=== PATIENT | female | born 1990 | race African-American/Black ===

== ENCOUNTER 2020-09-29 16:31 | Inpatient (IN) | payer MEDICAID, OTHER ==
[~2020-09-29] VITALS: Ht 167.6 cm; Wt 80.8 kg
[2020-09-29] MEDS ORDERED: SODIUM CHLORIDE 0.9% 1,000 ML IV ONE (18:30)
[2020-09-29 19:25] LABS: BASOPHILS % 0.3 % (0.0-2.0); EOSINOPHILS % 1.1 % (0.0-5.0); HEMATOCRIT. 37.8 % (36.0-48.0); HEMOGLOBIN. 12.5 g/dL (12.0-16.0); LYMPHOCYTES % 9.3 % (20.0-50.0); MEAN CORPUSCULAR HEMOGLOBIN 28.8 pg (28.0-32.0); MEAN CORPUSCULAR VOLUME 87.3 fL (81.0-99.0); MEAN PLATELET VOLUME 7.1 fl (7.4-10.4); MONOCYTES % 7.3 % (2.0-8.0); PLATELET 413 x1000/uL (130-400); RED BLOOD CELL COUNT 4.33 mill/uL (4.2-5.4); RED CELL DISTRIBUTION WIDTH 13.6 % (11.6-14.6)
[2020-09-29 19:30] LABS: CHLORIDE 103 mEq/L (98-107)
[2020-09-29 19:34] LABS: D-DIMER 0.64 mg/L FEU (<0.50); PROTHROMBIN TIME 10.3 sec (9.6-11.0)
[2020-09-29 19:36] LABS: ETHANOL BLOOD < 10 mg/dL
[2020-09-29 19:39] LABS: HCG SCREEN POSITIVE
[2020-09-29 21:35] LABS: CLARITY URINE CLEAR (CLEAR); COLOR URINE YELLOW (YELLOW); KETONES URINE NEGATIVE (NEGATIVE); LEUKOCYTE ESTERASE URINE NEGATIVE (NEGATIVE); NITRITE URINE NEGATIVE (NEGATIVE); OCCULT BLOOD URINE NEGATIVE (NEGATIVE); PROTEIN URINE NEGATIVE (NEGATIVE); SPECIFIC GRAVITY URINE 1.007 (1.005-1.030); UROBILINOGEN URINE 0.2 E.U./dL (0.2-1.0)
[2020-09-29 21:45] LABS: *BARBITURATES SCREEN URINE NEGATIVE (NEGATIVE); *BENZODIAZEPINES SCREEN URINE NEGATIVE (NEGATIVE); *COCAINE SCREEN URINE NEGATIVE (NEGATIVE); METHADONE URINE SCREEN NEGATIVE (NEGATIVE)
[2020-09-29 21:46] LABS: OPIATES URINE SCREEN NEGATIVE (NEGATIVE)
[2020-09-29 21:49] LABS: *AMPHETAMINES SCREEN URINE PRESUMTIVE POSITIVE (NEGATIVE); CANNABINOID URINE SCREEN PRESUMTIVE POSITIVE (NEGATIVE); PHENCYCLIDINE URINE SCREEN PRESUMTIVE POSITIVE (NEGATIVE)
[2020-09-30] MEDS: SODIUM CHLORIDE 0.9% 1,000 ML IV SCH (09:00)
[2020-09-30] MEDS ORDERED: ACETAMINOPHEN 325MG TABLET PO PRN (09:00)
[2020-09-30] MEDS ORDERED: IOHEXOL-350 100 ML BOTTLE ONE (09:20)
[2020-09-30 17:20] VITALS: BP 115/60
[2020-09-30] MEDS ORDERED: ALBU6.7H9 INH (18:12)
[2020-09-30 18:14] VITALS: BP 115/60
[2020-09-30] MEDS ORDERED: POTASSIUM CHLORIDE 20MEQ TABLET SR PO NR (19:15)
[2020-09-30 20:00] VITALS: BP 122/70
[2020-10-01] VITALS: BP 101/61
[2020-10-01 04:00] VITALS: BP 105/61
[2020-10-01 08:00] VITALS: BP 121/70
[2020-10-01] MEDS: SODIUM CHLORIDE 0.9% 1,000 ML IV SCH (08:12)
[2020-10-01 11:27] LABS: CHLORIDE 106 mEq/L (98-107)
[2020-10-01 11:38] LABS: LDL CHOLESTEROL 96 mg/dL (5-100); PHOSPHORUS 3.3 mg/dL (2.5-4.9)
[2020-10-01 11:39] LABS: HDL CHOLESTEROL 47 mg/dL (40-59); T4 FREE 0.84 ng/dL (0.76-1.46)
[2020-10-01 11:44] LABS: BASOPHILS % 0.4 % (0.0-2.0); HEMATOCRIT. 35.2 % (36.0-48.0); HEMOGLOBIN. 12.1 g/dL (12.0-16.0); LYMPHOCYTES % 10.3 % (20.0-50.0); MEAN CORPUSCULAR VOLUME 87.3 fL (81.0-99.0); MEAN PLATELET VOLUME 7.4 fl (7.4-10.4); MONOCYTES % 8.4 % (2.0-8.0); NEUTROPHILS % 79.9 % (40.0-76.0); PLATELET 405 x1000/uL (130-400); RED BLOOD CELL COUNT 4.03 mill/uL (4.2-5.4); RED CELL DISTRIBUTION WIDTH 13.7 % (11.6-14.6)
[2020-10-01 12:00] VITALS: BP 117/62
[2020-10-01 16:30] VITALS: BP 94/46
[2020-10-01] MEDS ORDERED: MAGNESIUM 1 G PREMIX 100 ML IV ONE (18:30)
[2020-10-01] MEDS: PRENATAL VIT/FE FUMARATE/FA TABLET PO SCH (19:10)
[2020-10-01 20:00] VITALS: BP 125/59
[2020-10-01] MEDS ORDERED: VANCOMYCIN 2,000 MG in DEXT 5% WATER 500 ML IV NR (23:30)
[2020-10-02] VITALS: BP 119/63
[2020-10-02 04:00] VITALS: BP 112/58
[2020-10-02 08:00] VITALS: BP 110/68
[2020-10-02] MEDS ORDERED: VANCOMYCIN 1250MG in DEXTROSE 5% WATER 250ML IV SCH (09:00)
[2020-10-02] MEDS: VANCOMYCIN 1 G PREMIX 200 ML IV SCH ×2 (09:58→17:27)
[2020-10-02] MEDS: SODIUM CHLORIDE 0.9% 1,000 ML IV SCH (09:59)
[2020-10-02] MEDS: PRENATAL VIT/FE FUMARATE/FA TABLET PO SCH (09:59)
[2020-10-02 10:46] LABS: CHLORIDE 104 mEq/L (98-107)
[2020-10-02 10:48] LABS: HEMATOCRIT. 34.6 % (36.0-48.0); HEMOGLOBIN. 11.9 g/dL (12.0-16.0); MEAN CORPUSCULAR HEMOGLOBIN 29.8 pg (28.0-32.0); MEAN CORPUSCULAR VOLUME 86.6 fL (81.0-99.0); MEAN PLATELET VOLUME 6.9 fl (7.4-10.4); PLATELET 427 x1000/uL (130-400)
[2020-10-02 12:00] VITALS: BP 141/93
[2020-10-02 16:00] VITALS: BP 137/47
[2020-10-02 20:00] VITALS: BP 135/85
[2020-10-03] VITALS: BP 137/83
[2020-10-03] MEDS ORDERED: VANCOMYCIN 1 G PREMIX 200 ML IV SCH (02:00)
[2020-10-03 04:00] VITALS: BP 113/72
[2020-10-03 07:50] LABS: CHLORIDE 104 mEq/L (98-107)
[2020-10-03 07:58] LABS: BASOPHILS % 0.3 % (0.0-2.0); HEMATOCRIT. 35.6 % (36.0-48.0); HEMOGLOBIN. 12.1 g/dL (12.0-16.0); MEAN CORPUSCULAR HEMOGLOBIN 29.2 pg (28.0-32.0); MEAN CORPUSCULAR VOLUME 86.3 fL (81.0-99.0); MONOCYTES % 9.5 % (2.0-8.0); NEUTROPHILS % 79.2 % (40.0-76.0); PLATELET 429 x1000/uL (130-400); RED BLOOD CELL COUNT 4.13 mill/uL (4.2-5.4); RED CELL DISTRIBUTION WIDTH 13.3 % (11.6-14.6)
[2020-10-03 08:00] VITALS: BP 114/59
[2020-10-03] MEDS: SODIUM CHLORIDE 0.9% 1,000 ML IV SCH (08:40)
[2020-10-03] MEDS: PRENATAL VIT/FE FUMARATE/FA TABLET PO SCH (08:45)
[2020-10-03 10:01] LABS: PLATELET ESTIMATE INCREASED
[2020-10-03 12:00] VITALS: BP 118/78
[2020-10-03] MEDS: VANCOMYCIN 750 MG PREMIX 150 ML IV SCH ×2 (12:01→20:48)
[2020-10-03 16:00] VITALS: BP 138/88
[2020-10-03 20:00] VITALS: BP 125/72
[2020-10-04] VITALS: BP 98/62
[2020-10-04] MEDS: VANCOMYCIN 750 MG PREMIX 150 ML IV SCH ×3 (03:21→20:03)
[2020-10-04 04:00] VITALS: BP 110/63
[2020-10-04 08:00] VITALS: BP 103/66
[2020-10-04] MEDS: SODIUM CHLORIDE 0.9% 1,000 ML IV SCH (08:23)
[2020-10-04] MEDS: PRENATAL VIT/FE FUMARATE/FA TABLET PO SCH (08:23)
[2020-10-04 12:00] VITALS: BP 122/72
[2020-10-04 13:27] LABS: BASOPHILS % 0.4 % (0.0-2.0); EOSINOPHILS % 1.2 % (0.0-5.0); HEMATOCRIT. 36.2 % (36.0-48.0); LYMPHOCYTES % 9.8 % (20.0-50.0); MEAN CORPUSCULAR HEMOGLOBIN 28.9 pg (28.0-32.0); MEAN CORPUSCULAR VOLUME 86.9 fL (81.0-99.0); MEAN PLATELET VOLUME 7.4 fl (7.4-10.4); MONOCYTES % 7.9 % (2.0-8.0); NEUTROPHILS % 80.7 % (40.0-76.0); PLATELET 465 x1000/uL (130-400); RED BLOOD CELL COUNT 4.16 mill/uL (4.2-5.4); RED CELL DISTRIBUTION WIDTH 13.3 % (11.6-14.6)
[2020-10-04 13:36] LABS: CHLORIDE 103 mEq/L (98-107)
[2020-10-04 16:00] VITALS: BP 114/70
[2020-10-04 20:00] VITALS: BP 114/74
[2020-10-05] VITALS: BP 98/55
[2020-10-05] MEDS: VANCOMYCIN 750 MG PREMIX 150 ML IV SCH ×3 (03:37→19:50)
[2020-10-05 04:00] VITALS: BP 103/54
[2020-10-05 06:56] LABS: BASOPHILS % 0.4 % (0.0-2.0); EOSINOPHILS % 1.2 % (0.0-5.0); HEMOGLOBIN. 11.7 g/dL (12.0-16.0); LYMPHOCYTES % 11.5 % (20.0-50.0); MEAN CORPUSCULAR HEMOGLOBIN 29.1 pg (28.0-32.0); MEAN CORPUSCULAR VOLUME 87.3 fL (81.0-99.0); MEAN PLATELET VOLUME 6.9 fl (7.4-10.4); NEUTROPHILS % 76.9 % (40.0-76.0); PLATELET 434 x1000/uL (130-400); RED BLOOD CELL COUNT 4.01 mill/uL (4.2-5.4); RED CELL DISTRIBUTION WIDTH 13.3 % (11.6-14.6)
[2020-10-05 07:46] LABS: CHLORIDE 105 mEq/L (98-107)
[2020-10-05 07:53] LABS: VANCOMYCIN TROUGH 22.8 ug/mL (5.0-10.0)
[2020-10-05 08:00] VITALS: BP 102/59
[2020-10-05] MEDS: SODIUM CHLORIDE 0.9% 1,000 ML IV SCH (08:13)
[2020-10-05] MEDS: PRENATAL VIT/FE FUMARATE/FA TABLET PO SCH (08:47)
[2020-10-05 12:00] VITALS: BP 110/60
[2020-10-05 16:00] VITALS: BP 140/70
[2020-10-05 19:59] VITALS: BP 133/80
[2020-10-06] VITALS: BP 128/72
[2020-10-06] MEDS: VANCOMYCIN 750 MG PREMIX 150 ML IV SCH ×2 (03:40→11:33)
[2020-10-06 04:00] VITALS: BP 117/68
[2020-10-06 08:00] VITALS: BP 116/70
[2020-10-06] MEDS: SODIUM CHLORIDE 0.9% 1,000 ML IV SCH (08:26)
[2020-10-06] MEDS: PRENATAL VIT/FE FUMARATE/FA TABLET PO SCH (08:26)
[2020-10-06 12:00] VITALS: BP 125/75
[2020-10-06 12:07] LABS: BASOPHILS % 0.8 % (0.0-2.0); EOSINOPHILS % 1.3 % (0.0-5.0); HEMATOCRIT. 36.4 % (36.0-48.0); HEMOGLOBIN. 12.1 g/dL (12.0-16.0); LYMPHOCYTES % 9.9 % (20.0-50.0); MEAN CORPUSCULAR HEMOGLOBIN 29.2 pg (28.0-32.0); MEAN PLATELET VOLUME 6.9 fl (7.4-10.4); MONOCYTES % 9.9 % (2.0-8.0); NEUTROPHILS % 78.1 % (40.0-76.0); PLATELET 413 x1000/uL (130-400); RED BLOOD CELL COUNT 4.13 mill/uL (4.2-5.4); RED CELL DISTRIBUTION WIDTH 13.3 % (11.6-14.6)
[2020-10-06 12:13] LABS: CHLORIDE 103 mEq/L (98-107)
== END 2020-10-06 15:05 | disposition left against medical advice (07) | DRG 566 ==
LOC: ER 16:43 → MICUSO 09-30 00:15 → 7EST 09-30 15:18
PROVIDERS: ADMIT Internal Medicine; ATTEND Internal Medicine
DX: O98.811 Other maternal infectious and parasitic diseases complicating pregnancy, first trimester (principal); A41.9 Sepsis, unspecified organism; F16.10 Hallucinogen abuse, uncomplicated; O99.351 Diseases of the nervous system complicating pregnancy, first trimester; E83.42 Hypomagnesemia; G90.8 Other disorders of autonomic nervous system; E16.2 Hypoglycemia, unspecified; E87.6 Hypokalemia; F17.210 Nicotine dependence, cigarettes, uncomplicated; J45.909 Unspecified asthma, uncomplicated; Z20.822 Contact with and (suspected) exposure to COVID-19; O26.891 Other specified pregnancy related conditions, first trimester; O20.8 Other hemorrhage in early pregnancy; O25.11 Malnutrition in pregnancy, first trimester; O30.001 Twin pregnancy, unspecified number of placenta and unspecified number of amniotic sacs, first trimester; O99.281 Endocrine, nutritional and metabolic diseases complicating pregnancy, first trimester; O99.331 Smoking (tobacco) complicating pregnancy, first trimester; O99.511 Diseases of the respiratory system complicating pregnancy, first trimester; F12.10 Cannabis abuse, uncomplicated; O99.321 Drug use complicating pregnancy, first trimester; F15.10 Other stimulant abuse, uncomplicated; Z3A.08 8 weeks gestation of pregnancy; Z71.51 Drug abuse counseling and surveillance of drug abuser
CPT/HCPCS: 36415; 71275; 76802; 76810; 76815; 80048; 80053; 80061; 80076; 80202; 80305; 80320; 81003; 83605; 83735; 83880; 84100; 84145; 84439; 84443; 84484; 84703; 85025; 85379; 86850; 86900; 87077; 87186; 87426; 93005; 93306; 93970; 99285; C1893; J3370; J3475; J7030; J7040; J7060; Q9967; G0480

== ENCOUNTER 2020-12-22 09:29 | Observation (INO) | payer OTHER ==
[~2020-12-22] VITALS: Ht 162.6 cm; Wt 84.4 kg
[~2020-12-22 09:29] MED LIST: ALBU6.7H9 INH
[2020-12-22] MEDS ORDERED: PREN1TAB23 PO (09:44)
[2020-12-22 10:29] LABS: CLARITY URINE CLEAR (CLEAR); COLOR URINE YELLOW (YELLOW); KETONES URINE NEGATIVE (NEGATIVE); LEUKOCYTE ESTERASE URINE NEGATIVE (NEGATIVE); NITRITE URINE NEGATIVE (NEGATIVE); OCCULT BLOOD URINE NEGATIVE (NEGATIVE); PH URINE 7.5 (4.5-8.0); PROTEIN URINE NEGATIVE (NEGATIVE); SPECIFIC GRAVITY URINE 1.016 (1.005-1.030); UROBILINOGEN URINE 0.2 E.U./dL (0.2-1.0)
== END 2020-12-22 12:05 | disposition home or self-care (01) ==
LOC: 8 EST LDRP 09:29
PROVIDERS: ADMIT Obstetrics & Gynecology; ATTEND Obstetrics & Gynecology
DX: O26.892 Other specified pregnancy related conditions, second trimester (principal); R10.30 Lower abdominal pain, unspecified; O99.891 Other specified diseases and conditions complicating pregnancy; M54.59 Other low back pain; Z3A.25 25 weeks gestation of pregnancy
CPT/HCPCS: 59025; 76805; 76810; 81003; G0378; 99281; G0379